=== PATIENT | female | born 1945 | race Caucasian/White ===

== ENCOUNTER 2017-02-05 12:56 | Emergency (ER) | payer MEDICARE, OTHER ==
[2017-02-05 13:57] LABS: HEMOGLOBIN 12.2 gm/dl (12.3-15.3); RED BLOOD COUNT 4.94 M/UL (4.00-5.10); WHITE BLOOD COUNT 7.5 K/UL (4.5-11.0)
[2017-02-05 14:21] LABS: BUN/CREATININE RATIO 23 (0-10)
== END 2017-02-05 16:55 | disposition home or self-care (01) ==
LOC: ER1 12:56
PROVIDERS: Emergency Medicine
DX: J44.1 Chronic obstructive pulmonary disease with (acute) exacerbation (principal)
CPT/HCPCS: 36415; 36600; 71010; 80053; 82550; 82553; 82803; 83605; 83874; 83880; 84484; 85025; 93005; 94640; 94664; 96374; 99284; J2930; J7040

== ENCOUNTER 2017-04-04 18:08 | Emergency (ER) | payer MEDICARE, OTHER ==
[2017-04-04 20:28] LABS: HEMOGLOBIN 12.3 gm/dl (12.3-15.3); RED BLOOD COUNT 5.02 M/UL (4.00-5.10); WHITE BLOOD COUNT 7.6 K/UL (4.5-11.0)
[2017-04-04 20:57] LABS: BUN/CREATININE RATIO 21 (0-10)
[2017-04-06] MEDS ORDERED: LEVOTHYROXINE137 MCG PO (21:59)
[2017-04-06] MEDS ORDERED: ASPIR 8181 MG PO (22:00)
[2017-04-06] MEDS ORDERED: TRADJENTA5 MG PO (22:00)
[2017-04-06] MEDS ORDERED: MONTELUKAST SOD10 MG PO (22:00)
[2017-04-06] MEDS ORDERED: ELAVIL 50 MG TA50 MG PO (22:01)
[2017-04-06] MEDS ORDERED: SIMVASTATIN20 MG PO (22:03)
[2017-04-06] MEDS ORDERED: CEFDINIR300 MG PO (22:04)
[2017-04-06] MEDS ORDERED: GLUCOPHAGE1000 MG PO (22:05)
[2017-04-06] MEDS ORDERED: PLAVIX 75 MG TA75 MG PO (22:05)
[2017-04-06] MEDS ORDERED: LOVAZA1 GM PO (22:06)
[2017-04-06] MEDS ORDERED: ANTI-DIARRHEAL2 MG PO (22:07)
== END 2017-04-05 | disposition home or self-care (01) ==
LOC: ER1 18:08
PROVIDERS: Physician Assistant
DX: J44.0 Chronic obstructive pulmonary disease with (acute) lower respiratory infection (principal); J20.9 Acute bronchitis, unspecified; J44.1 Chronic obstructive pulmonary disease with (acute) exacerbation; I25.810 Atherosclerosis of coronary artery bypass graft(s) without angina pectoris; I25.2 Old myocardial infarction; E11.9 Type 2 diabetes mellitus without complications; I10 Essential (primary) hypertension; E78.5 Hyperlipidemia, unspecified; K21.9 Gastro-esophageal reflux disease without esophagitis; Z87.891 Personal history of nicotine dependence; Z88.0 Allergy status to penicillin; Z95.1 Presence of aortocoronary bypass graft; Z99.81 Dependence on supplemental oxygen; Z79.02 Long term (current) use of antithrombotics/antiplatelets; Z79.82 Long term (current) use of aspirin; Z79.84 Long term (current) use of oral hypoglycemic drugs; Z79.899 Other long term (current) drug therapy
CPT/HCPCS: 36415; 36600; 71020; 80053; 81001; 82550; 82553; 82803; 83605; 83874; 83880; 84484; 85025; 87040; 87077; 87086; 87186; 93005; 94640; 94664; 96372; 96374; 99285; J0696; J2930

== ENCOUNTER 2017-04-06 14:59 | Inpatient (IN) | payer MEDICARE, OTHER ==
[~2017-04-06] VITALS: Ht 160 cm; Wt 76.3 kg
[2017-04-06 17:35] LABS: HEMOGLOBIN 13.4 gm/dl (12.3-15.3); RED BLOOD COUNT 5.51 M/UL (4.00-5.10)
[2017-04-06 17:36] LABS: WHITE BLOOD COUNT 9.8 K/UL (4.5-11.0)
[2017-04-06 17:51] LABS: BUN/CREATININE RATIO 30 (0-10)
[2017-04-06] MEDS ORDERED: LEVOTHYROXINE137 MCG PO (21:59)
[2017-04-06] MEDS ORDERED: MONTELUKAST SOD10 MG PO (22:00)
[2017-04-06] MEDS ORDERED: ASPIR 8181 MG PO (22:00)
[2017-04-06] MEDS ORDERED: TRADJENTA5 MG PO (22:00)
[2017-04-06] MEDS ORDERED: ELAVIL 50 MG TA50 MG PO (22:01)
[2017-04-06] MEDS ORDERED: SIMVASTATIN20 MG PO (22:03)
[2017-04-06] MEDS ORDERED: CEFDINIR300 MG PO (22:04)
[2017-04-06] MEDS ORDERED: GLUCOPHAGE1000 MG PO (22:05)
[2017-04-06] MEDS ORDERED: PLAVIX 75 MG TA75 MG PO (22:05)
[2017-04-06] MEDS ORDERED: LOVAZA1 GM PO (22:06)
[2017-04-06] MEDS ORDERED: ANTI-DIARRHEAL2 MG PO (22:07)
[2017-04-07 05:47] LABS: HEMOGLOBIN 12.2 gm/dl (12.3-15.3); RED BLOOD COUNT 5.11 M/UL (4.00-5.10); WHITE BLOOD COUNT 10.1 K/UL (4.5-11.0)
[2017-04-07 06:13] LABS: BUN/CREATININE RATIO 24 (0-10)
[2017-04-08 05:32] LABS: RED BLOOD COUNT 4.96 M/UL (4.00-5.10); WHITE BLOOD COUNT 10.5 K/UL (4.5-11.0)
[2017-04-08 05:54] LABS: BUN/CREATININE RATIO 34 (0-10)
[2017-04-09 05:54] LABS: HEMOGLOBIN 12.6 gm/dl (12.3-15.3); RED BLOOD COUNT 5.23 M/UL (4.00-5.10); WHITE BLOOD COUNT 11.4 K/UL (4.5-11.0)
[2017-04-09 06:16] LABS: BUN/CREATININE RATIO 37 (0-10)
[2017-04-10] MEDS ORDERED: CEFUROXIME250 MG PO (16:49)
[2017-04-10] MEDS ORDERED: MUCINEX600 MG PO (16:50)
[2017-04-10] MEDS ORDERED: PROVENTIL HFA 61 INH INH (16:55)
[2017-04-10] MEDS ORDERED: PREDNISONE20 MG PO (16:56)
== END 2017-04-10 19:19 | disposition home or self-care (01) | DRG 189 ==
LOC: ER1 14:59 → M/S 20:30 → ZEROF 20:30 → M/S 21:40
PROVIDERS: Emergency Medicine; Physician Assistant Medical; ADMIT Family Medicine
DX: J96.21 Acute and chronic respiratory failure with hypoxia (principal); J18.9 Pneumonia, unspecified organism; I50.33 Acute on chronic diastolic (congestive) heart failure; J44.0 Chronic obstructive pulmonary disease with (acute) lower respiratory infection; J44.1 Chronic obstructive pulmonary disease with (acute) exacerbation; N30.00 Acute cystitis without hematuria; I11.0 Hypertensive heart disease with heart failure; E11.65 Type 2 diabetes mellitus with hyperglycemia; B96.20 Unspecified Escherichia coli [E. coli] as the cause of diseases classified elsewhere; I25.10 Atherosclerotic heart disease of native coronary artery without angina pectoris; E78.5 Hyperlipidemia, unspecified; E03.9 Hypothyroidism, unspecified; K21.9 Gastro-esophageal reflux disease without esophagitis; R07.89 Other chest pain; E66.9 Obesity, unspecified; I25.2 Old myocardial infarction; Z95.1 Presence of aortocoronary bypass graft; Z99.81 Dependence on supplemental oxygen; Z87.891 Personal history of nicotine dependence; Z79.84 Long term (current) use of oral hypoglycemic drugs; Z79.02 Long term (current) use of antithrombotics/antiplatelets; Z79.82 Long term (current) use of aspirin; Z79.899 Other long term (current) drug therapy; Z72.3 Lack of physical exercise; Z68.29 Body mass index [BMI] 29.0-29.9, adult; Z88.3 Allergy status to other anti-infective agents; Z88.0 Allergy status to penicillin; Z90.710 Acquired absence of both cervix and uterus; Z98.890 Other specified postprocedural states; Z82.49 Family history of ischemic heart disease and other diseases of the circulatory system
CPT/HCPCS: ECHO; 36415; 36600; 71010; 71020; 80048; 80053; 80061; 80202; 81001; 82550; 82553; 82803; 82962; 83036; 83605; 83735; 83874; 83880; 84443; 84484; 85025; 85027; 87040; 87077; 87086; 87186; 93005; 93306; 94640; 94664; 96372; 96374; 96375; 99285; G0378; J0696; J1650; J1940; J2185; J2543; J2930; J3370; J7050; J7070

== ENCOUNTER → 2017-05-22 | Outpatient (CLI) | payer MEDICARE, OTHER ==
[~2017-05-22] MED LIST: ANTI-DIARRHEAL2 MG PO; ASPIR 8181 MG PO; CEFDINIR300 MG PO; CEFUROXIME250 MG PO; ELAVIL 50 MG TA50 MG PO; GLUCOPHAGE1000 MG PO; LEVOTHYROXINE137 MCG PO; LOVAZA1 GM PO; MONTELUKAST SOD10 MG PO; MUCINEX600 MG PO; PLAVIX 75 MG TA75 MG PO; PREDNISONE20 MG PO; PROVENTIL HFA 61 INH INH; SIMVASTATIN20 MG PO; TRADJENTA5 MG PO
== END ==
LOC: RAD 15:38
DX: R05 Cough (principal)
CPT/HCPCS: 71020

== ENCOUNTER → 2021-12-29 | Outpatient (CLI) | payer MEDICARE, OTHER ==
[~2021-12-29] VITALS: Ht 162.6 cm; Wt 72.6 kg
[~2021-12-29] MED LIST changes: +ALBUTEROL1.25 MG/3 NEB; +AMITRIPTYLINE100 MG PO; +AZELASTINE137 MCG/0.; +AZITHROMYCIN500 MG PO; +CARDIZEM CD240 MG PO; +COLACE 100MG C100 MG PO; +DEXAMETHASONE6 MG PO; +DOXYCYCLINE HY100 M2 PO; -ELAVIL 50 MG TA50 MG PO; +FAMOTIDINE40 MG PO; +LOPRESSOR 25 MG25 MG PO; +MEDROL DOSEPAK 24 MG PO; +PERFOROMIS20 MCG/21 NEB; +PROTONIX40 MG PO; -PROVENTIL HFA 61 INH INH; +PULMICORT0.5 MG/21 NEB; +THERAGRAN M TAB1 EA PO; +ZANTAC150 MG PO; +ZOFRAN ODT 4 MG4 MG PO
== END ==
LOC: EROP 15:18
DX: U07.1 COVID-19 (principal); Z23 Encounter for immunization; I10 Essential (primary) hypertension; I25.10 Atherosclerotic heart disease of native coronary artery without angina pectoris; E11.9 Type 2 diabetes mellitus without complications; J44.9 Chronic obstructive pulmonary disease, unspecified; Z87.891 Personal history of nicotine dependence; Z99.81 Dependence on supplemental oxygen
CPT/HCPCS: M0247; Q0247

== ENCOUNTER 2021-12-30 10:19 | Inpatient (IN) | payer MEDICARE, OTHER ==
[~2021-12-30] VITALS: Ht 162.6 cm; Wt 70.5 kg
[~2021-12-30 10:19] MED LIST changes: -ALBUTEROL1.25 MG/3 NEB; -AMITRIPTYLINE100 MG PO; -AZELASTINE137 MCG/0.; -AZITHROMYCIN500 MG PO; -DEXAMETHASONE6 MG PO; -FAMOTIDINE40 MG PO; -PERFOROMIS20 MCG/21 NEB; -PULMICORT0.5 MG/21 NEB; -ZOFRAN ODT 4 MG4 MG PO
[2021-12-30 11:19] LABS: RED BLOOD COUNT 4.84 M/UL (4.00-5.10); WHITE BLOOD COUNT 7.1 K/UL (4.5-11.0)
[2021-12-30 12:02] LABS: BUN/CREATININE RATIO 31 (0-10)
[2021-12-30] MEDS ORDERED: PERFOROMIS20 MCG/21 NEB (16:30)
[2021-12-30] MEDS ORDERED: PULMICORT0.5 MG/21 NEB (16:31)
[2021-12-30] MEDS ORDERED: ALBUTEROL1.25 MG/3 NEB (16:55)
[2021-12-30] MEDS ORDERED: PROTONIX40 MG PO (18:09)
[2021-12-30] MEDS ORDERED: ZOFRAN ODT 4 MG4 MG PO (18:09)
[2021-12-30] MEDS ORDERED: AZELASTINE137 MCG/0. (18:09)
[2021-12-30] MEDS ORDERED: DEXAMETHASONE6 MG PO (18:10)
[2021-12-30] MEDS ORDERED: AZITHROMYCIN500 MG PO (18:10)
[2021-12-30] MEDS ORDERED: FAMOTIDINE40 MG PO (18:11)
[2021-12-30] MEDS ORDERED: AMITRIPTYLINE100 MG PO (22:01)
[2021-12-31 06:25] LABS: HEMOGLOBIN 10.8 gm/dl (12.3-15.3); RED BLOOD COUNT 4.49 M/UL (4.00-5.10); WHITE BLOOD COUNT 5.5 K/UL (4.5-11.0)
[2022-01-01 03:30] LABS: HEMOGLOBIN 10.9 gm/dl (12.3-15.3); RED BLOOD COUNT 4.34 M/UL (4.00-5.10); WHITE BLOOD COUNT 4.9 K/UL (4.5-11.0)
[2022-01-02 03:28] LABS: HEMOGLOBIN 11.6 gm/dl (12.3-15.3); RED BLOOD COUNT 4.74 M/UL (4.00-5.10)
[2022-01-02 03:29] LABS: WHITE BLOOD COUNT 7.5 K/UL (4.5-11.0)
--- NOTE | 2022-01-03 17:19 | NUR ---
REPORT CALLED TO MILLA WITH [facility].
== END 2022-01-03 16:32 | disposition home health service (06) | DRG 177 ==
LOC: ER1 10:19 → PROG CARE 13:49 → CDU 13:49 → PROG CARE 22:22
PROVIDERS: Internal Medicine Infectious Disease; Nurse Practitioner; ADMIT Internal Medicine
PROC: 8E0ZXY6 Isolation (ICD-10-PCS; principal; 2021-12-30)
PROC: XW033E5 Introduction of Remdesivir Anti-infective into Peripheral Vein, Percutaneous Approach, New Technology Group 5 (ICD-10-PCS; 2021-12-30)
PROC: 5A0945A Assistance with Respiratory Ventilation, 24-96 Consecutive Hours, High Flow/Velocity Cannula (ICD-10-PCS; 2021-12-30)
PROC: 3E0333Z Introduction of Anti-inflammatory into Peripheral Vein, Percutaneous Approach (ICD-10-PCS; 2021-12-31)
DX: U07.1 COVID-19 (principal); J12.82 Pneumonia due to coronavirus disease 2019; J96.21 Acute and chronic respiratory failure with hypoxia; J44.0 Chronic obstructive pulmonary disease with (acute) lower respiratory infection; N17.9 Acute kidney failure, unspecified; E78.5 Hyperlipidemia, unspecified; E86.0 Dehydration; E03.9 Hypothyroidism, unspecified; E11.9 Type 2 diabetes mellitus without complications; M19.90 Unspecified osteoarthritis, unspecified site; F41.9 Anxiety disorder, unspecified; E86.1 Hypovolemia; H35.30 Unspecified macular degeneration; H54.8 Legal blindness, as defined in USA; K21.9 Gastro-esophageal reflux disease without esophagitis; I25.10 Atherosclerotic heart disease of native coronary artery without angina pectoris; Z95.1 Presence of aortocoronary bypass graft; Z87.891 Personal history of nicotine dependence; Z99.81 Dependence on supplemental oxygen; I25.2 Old myocardial infarction; Z79.4 Long term (current) use of insulin; Z87.11 Personal history of peptic ulcer disease; Z90.710 Acquired absence of both cervix and uterus; Z88.1 Allergy status to other antibiotic agents; Z88.0 Allergy status to penicillin; Z88.8 Allergy status to other drugs, medicaments and biological substances; Z80.3 Family history of malignant neoplasm of breast
CPT/HCPCS: 36415; 36600; 71045; 71275; 80048; 80053; 82550; 82553; 82803; 82962; 83605; 83615; 83735; 83874; 83880; 84100; 84484; 85025; 85379; 85610; 85730; 86140; 87040; 93005; 94640; 94664; 94760; 96374; 99285; J0248; J1100; J1650; J2185; J7030; M0247; Q0247; Q9967; U0002

== ENCOUNTER 2022-01-15 15:00 | Emergency (ER) | payer MEDICARE, OTHER ==
[~2022-01-15 15:00] MED LIST changes: +ALBUTEROL1.25 MG/3 NEB; +AMITRIPTYLINE100 MG PO; +AZELASTINE137 MCG/0.; +AZITHROMYCIN500 MG PO; +DEXAMETHASONE6 MG PO; +FAMOTIDINE40 MG PO; +PERFOROMIS20 MCG/21 NEB; +PULMICORT0.5 MG/21 NEB; +ZOFRAN ODT 4 MG4 MG PO
[2022-01-15 17:36] LABS: RED BLOOD COUNT 4.9 M/UL (4.00-5.10); WHITE BLOOD COUNT 8.6 K/UL (4.5-11.0)
[2022-01-15] MEDS ORDERED: AZITHROMYCIN250 MG PO (20:05)
== END 2022-01-15 20:15 | disposition home or self-care (01) ==
LOC: ER1 15:00
PROVIDERS: Physician Assistant Medical
DX: U09.9 Post COVID-19 condition, unspecified (principal); E11.9 Type 2 diabetes mellitus without complications; J44.9 Chronic obstructive pulmonary disease, unspecified; Z90.710 Acquired absence of both cervix and uterus
CPT/HCPCS: 36600; 71045; 80053; 82550; 82553; 82803; 83605; 83874; 84439; 84443; 84484; 85025; 93005; 99285

== ENCOUNTER 2022-03-18 23:17 | Inpatient (IN) | payer MEDICARE, OTHER ==
[~2022-03-18] VITALS: Ht 162.6 cm; Wt 69.9 kg
[~2022-03-18 23:17] MED LIST changes: +AZITHROMYCIN250 MG PO
[2022-03-18 23:45] LABS: HEMOGLOBIN 11.9 gm/dl (12.3-15.3); RED BLOOD COUNT 4.79 M/UL (4.00-5.10); WHITE BLOOD COUNT 10.2 K/UL (4.5-11.0)
[2022-03-19 06:11] LABS: HEMOGLOBIN 10.4 gm/dl (12.3-15.3); WHITE BLOOD COUNT 9.7 K/UL (4.5-11.0)
[2022-03-19 06:18] LABS: RED BLOOD COUNT 4.22 M/UL (4.00-5.10)
[2022-03-20 06:18] LABS: WHITE BLOOD COUNT 8.5 K/UL (4.5-11.0)
[2022-03-20 06:40] LABS: RED BLOOD COUNT 3.62 M/UL (4.00-5.10)
--- NOTE | 2022-03-20 11:07 | NUR ---
PATIENT HR 130-135. PATIENT ASYMPTOMATIC. NO C/O NOTED. NO DISTRESS NOTED. NOTIFIED AND NEW ORDERS RECEIVED AND NOTED. WCTM.
--- NOTE | 2022-03-20 15:30 | NUR ---
PATIENT GIVEN LOPRESSOR 5MG IVP AT 1434. HR 143. BP 124/80. AT 1530 NOTIFIED THAT PATIENTS HR IS 130-135, BP 119/81. ORDER RECEIVED TO ADMINISTER LOPRESSOR 12.5MG PO EARLY AND MONITOR PATIENT. NO DISTRESS NOTED. O2 SAT 97%. DENIES C/O SOA OR CHEST PAIN. WCTM.
[2022-03-21] MEDS ORDERED: MEDROL DOSEPAK 24 MG PO (10:17)
[2022-03-21] MEDS ORDERED: AMOX TR-K CLV1 EAC4 PO (10:29)
[2022-03-21] MEDS ORDERED: LOPRESSOR 25 MG25 MG PO (10:29)
== END 2022-03-21 13:12 | disposition home or self-care (01) | DRG 871 ==
LOC: ER1 23:17 → CDU 03-19 02:51 → M/S 03-19 02:51
PROVIDERS: Family Medicine; Internal Medicine; ADMIT Internal Medicine
DX: A41.9 Sepsis, unspecified organism (principal); J18.9 Pneumonia, unspecified organism; J69.0 Pneumonitis due to inhalation of food and vomit; J96.21 Acute and chronic respiratory failure with hypoxia; J96.22 Acute and chronic respiratory failure with hypercapnia; J44.0 Chronic obstructive pulmonary disease with (acute) lower respiratory infection; J44.1 Chronic obstructive pulmonary disease with (acute) exacerbation; R65.20 Severe sepsis without septic shock; Z95.1 Presence of aortocoronary bypass graft; K21.9 Gastro-esophageal reflux disease without esophagitis; Z20.822 Contact with and (suspected) exposure to COVID-19; E03.9 Hypothyroidism, unspecified; F41.9 Anxiety disorder, unspecified; G47.00 Insomnia, unspecified; I25.10 Atherosclerotic heart disease of native coronary artery without angina pectoris; E11.9 Type 2 diabetes mellitus without complications; E78.5 Hyperlipidemia, unspecified; Z96.1 Presence of intraocular lens; Z99.81 Dependence on supplemental oxygen; Z79.899 Other long term (current) drug therapy; I48.0 Paroxysmal atrial fibrillation; Z86.16 Personal history of COVID-19; Z90.710 Acquired absence of both cervix and uterus; Z98.49 Cataract extraction status, unspecified eye; Z98.890 Other specified postprocedural states; Z88.0 Allergy status to penicillin; Z88.8 Allergy status to other drugs, medicaments and biological substances; Z85.118 Personal history of other malignant neoplasm of bronchus and lung; Z82.49 Family history of ischemic heart disease and other diseases of the circulatory system; Z82.3 Family history of stroke; Z87.891 Personal history of nicotine dependence; Z79.4 Long term (current) use of insulin; Z98.41 Cataract extraction status, right eye; Z98.42 Cataract extraction status, left eye; Z80.3 Family history of malignant neoplasm of breast; Z80.1 Family history of malignant neoplasm of trachea, bronchus and lung; Z83.3 Family history of diabetes mellitus; Z80.8 Family history of malignant neoplasm of other organs or systems; Z79.82 Long term (current) use of aspirin
CPT/HCPCS: ECHO; 36415; 36600; 71045; 71250; 80048; 80053; 80202; 81001; 82550; 82553; 82803; 82962; 83540; 83550; 83605; 83735; 83880; 84100; 84439; 84443; 84484; 85025; 85027; 85652; 86140; 87040; 87086; 93005; 93306; 94640; 94664; 94760; 96374; 96375; 96376; 97161; 97165; 97166; 97530; 99285; J0456; J1650; J2185; J2920; J2930; J3370; J3475; J7030; J7070; U0002